=== PATIENT | female | born 1980 | race African-American/Black ===

== ENCOUNTER 2021-02-20 11:03 | Day surgery (SDC) | payer BC ==
[~2021-02-20] VITALS: Ht 175.3 cm; Wt 105.4 kg
[~2021-02-20 11:03] MED LIST: BENADRYL25 M2; LORTAB 5/500 501 TAB PO
[2021-02-20] MEDS ORDERED: PROAIR HFA0.09 MG/AC IH (11:13)
[2021-02-20] MEDS ORDERED: XANAX .25M0.25 MG/TA PO (11:13)
[2021-02-20] MEDS ORDERED: VITAMINC500CH PO (11:14)
[2021-02-20] MEDS ORDERED: TYLENOL 500MG500 MG PO (11:14)
[2021-02-20 11:23] VITALS: BP 148/92; PULSE 74; TEMP 97.2
[2021-02-20 12:50] VITALS: BP 97/64; PULSE 67
--- NOTE | 2021-02-20 12:50 | NUR ---
1250- PATIENT BROUGHT BACK TO ENDO ROOM 5 VIA CART. AMBULATED TO CHAIR WITHOUT DIFFICULTY. PLACED ON MONITORS, VITAL SIGNS STABLE. DENIES PAIN OR NAUSEA. REQUESTS WATER AND CRACKERS. MOTHER TO DRIVE PATIENT HOME. THUY AT BEDSIDE FOR REPORT. AMBULATED TO BATHROOM. WARM BLANKET PROVIDED, CALL BYRD WITHIN REACH. WILL CONTINUE TO MONITOR. 1305- PATIENT TOLERATING FOOD AND DRINK WITHOUT DIFFICULTY. DR. HATCH AT BEDSIDE TO EXPLAIN PROCEDURE.
[2021-02-20 13:05] VITALS: BP 115/76; PULSE 81
[2021-02-20 13:20] VITALS: BP 123/85; PULSE 69
--- NOTE | 2021-02-20 13:20 | NUR ---
1320- PATIENT STATES SHE FEELS READY TO GO HOME AT THIS TIME. VITAL SIGNS STABLE. IV REMOVED, INTACT. PATIENT TO GET DRESSED AT THIS TIME. DISCHARGE INSTRUCTIONS REVIEWED WITH PATIENT AND MOTHER, ALL QUESTIONS ANSWERED 1330- PATIENT BROUGHT DOWN TO LOBBY VIA WHEEL CHAIR BY CORRINE FENG. MOTHER TO DRIVE PATIENT HOME. ALL BELONGINGS IN HAND.
== END 2021-02-20 13:30 | disposition home or self-care (01) ==
LOC: SDCO 11:03
DX: D12.5 Benign neoplasm of sigmoid colon (principal); D12.8 Benign neoplasm of rectum; K63.5 Polyp of colon; R19.7 Diarrhea, unspecified; K92.1 Melena; K21.00 Gastro-esophageal reflux disease with esophagitis, without bleeding; K29.30 Chronic superficial gastritis without bleeding; Z79.899 Other long term (current) drug therapy; F17.210 Nicotine dependence, cigarettes, uncomplicated
CPT/HCPCS: J2704; J7030